=== PATIENT | male | born 1970 | race Two or more races ===

== ENCOUNTER 2025-01-08 12:52 | Emergency (ER) | payer OTHER ==
[~2025-01-08] VITALS: Ht 165.1 cm; Wt 68.0 kg
[2025-01-08] MEDS ORDERED: ROSUVASTATIN CA20 MG PO (13:15)
== END 2025-01-08 18:45 | disposition home or self-care (01) ==
LOC: ER 13:20
DX: S05.12XA Contusion of eyeball and orbital tissues, left eye, initial encounter (principal); X58.XXXA Exposure to other specified factors, initial encounter; Y93.18 Activity, surfing, windsurfing and boogie boarding; Y92.832 Beach as the place of occurrence of the external cause; Y99.9 Unspecified external cause status; J34.1 Cyst and mucocele of nose and nasal sinus